=== PATIENT | female | born 1960 | race Caucasian/White ===

== ENCOUNTER 2017-01-09 20:49 | Emergency (ER) | payer OTHER ==
--- NOTE | ~2017-01-09 | CT71 ---
[facility] A Service [facility] RADIOLOGY TEXT RESULTS PATIENT: WILFREDO GOMEZ LOCATION: [facility] : 62 UNIT #: [id number] AGE: [address]: Vanessa Toro SEX: F ORDER DR: [id number] [facility]. [place], [place] [address] [id number] MR#: [id number] Acc #: [id number] NAME: WILFREDO GOMEZ : 1960 SEX: F STUDY DATE/TIME: 01/09/2017 23:36 UNIT: [facility] ROOM: STUDY DESCRIPTION: CT Head Wo Contrast Attending Physician: Vanessa Toro Pa-C Ordering Physician: Vanessa Toro Pa-C Primary Care Physician: Xena HuertaPDavidRClarisse MEDICAL IMAGING REPORT This report is preliminary unless electronic signature is present EXAM CT head without contrast. INDICATION Weakness and nausea with dizziness for the past [address] head. This CT exam was performed with one or more of the following radiation dose reduction techniques: automatic exposure control, adjustment of mA and/or kV according to patient size, and iterative reconstruction. COMPARISON None. FINDINGS No acute hemorrhage. No abnormal mass effect, extraaxial fluid collection or hydrocephalus. No depressed calvarial fracture. The paranasal sinuses and mastoid air cells are clear. IMPRESSION No acute intracranial findings. Dictated by... Deejay Smith M.D. THIS IS AN ELECTRONICALLY VERIFIED REPORT Deejay Smith M.D. at 01/14/2017 7:30 AM EED/elfego [facility] A Service [facility] RADIOLOGY TEXT RESULTS PATIENT: WILFREDO GOMEZ LOCATION: [facility] : 62 UNIT #: [id number] AGE: [address]: Vanessa Toro SEX: F ORDER DR: TD: 01/10/2017 01:59 JOB #: [id number] MEDICAL IMAGING REPORT Page 1 of 1 COPY
--- NOTE | ~2017-01-09 | EKG ---
PATIENT: WILFREDO GOMEZ UNIT #: [id number] Ventricular Rate: 66 BPM Atrial Rate: 66 BPM P-R Interval: 176 ms QRS Duration: 86 ms Q-T Interval: 406 ms QTC Calculation(Bezet): 425 ms P [place]: 44 degrees Calculated R [place]: 54 degrees Calculated T [place]: 40 degrees Diagnosis Line: Normal sinus rhythm Diagnosis Line: Normal ECG Diagnosis Line: When compared with ECG of 11-OCT-2016 18:20, Diagnosis Line: No significant change was found Diagnosis Line: Confirmed by RODO MACHADO MD ([id number]) on 01/11/2017 Diagnosis Line: 6:56:04 PM INTERPRETING MD: CARTER FRY
[~2017-01-09 20:49] MED LIST: ALPRAZOLAM1 MG PO; CITALOPRAM HBR40 MG PO; FLEXERIL PO; HYDROCHLOROTHIA25 MG PO; KEFLEX500 M1 PO; LIPITOR20 MG PO; VITAMIN D50000 UNIT PO; XANAX1 MG PO; ZYRTEC10 M2 PO
[2017-01-09 21:11] LABS: BASOPHIL# 0.1 X10e3 (0-0.3); EOSINOPHIL# 0.2 X10e3 (0-0.7); EOSINOPHIL% 2.2 % (0.0-7.0); HEMATOCRIT 44.6 % (35.0-45.0); HEMOGLOBIN 14.9 gm/dL (12.0-16.0); LYMPHOCYTE# 4.4 X10e3 (1.0-3.5); LYMPHOCYTE% 41.8 % (17.0-45.0); MEAN CELL VOLUME 87.2 FL (83-96); MEAN CORPUSCULAR HGB CONC 33.3 g/dL (30-36); MEAN PLATELET VOLUME 7.7 FL (6.5-11.5); MONOCYTE# 0.8 X10e3 (0-1.0); MONOCYTE% 7.2 % (3.0-12.0); NEUTROPHIL# 5.1 X10e3 (1.5-7.1); NEUTROPHIL% 47.8 % (40-75); PLATELET COUNT 317 X10e3 (140-420); RED BLOOD COUNT 5.12 X10e (3.90-5.30); RED CELL DISTRIBUTION WIDTH 13.1 % (11.0-15.5); WHITE BLOOD COUNT 10.6 X10e3 (4.0-10.5)
[2017-01-09 21:15] LABS: DIFF IND NO
[2017-01-09 21:35] LABS: ALBUMIN SERUM 4.4 g/dL (3.5-5.0); BILIRUBIN, DIRECT 0.1 mg/dL (0.0-0.2); BILIRUBIN,INDIRECT 1.1 mg/dL (0.0-0.9); BILIRUBIN,TOTAL 1.2 mg/dL (0.2-2.0); BUN/CREATININE RATIO 22.85; CALCIUM SERUM 9.4 mg/dL (8.4-10.2); CREATININE SERUM 0.7 mg/dL (0.6-1.4); GLOM FILT RATE Estimated 97.5 mL/min (>60); POTASSIUM 4.5 mmol/L (3.5-5.1); PROTEIN TOTAL SERUM 7.4 g/dL (6.0-8.3)
[2017-01-09 22:16] LABS: URINE SOURCE CLEAN CATCH
[2017-01-09 22:22] LABS: POC - CKMB <1.0 ng/mL (0.0-7.9); POC - TROPONIN <0.05 ng/mL (<=0.05)
[2017-01-09 22:23] LABS: URINE APPEARANCE CLEAR; URINE BILIRUBIN NEG (NEG); URINE BLOOD TRACE (NEG); URINE COLOR YELLOW; URINE GLUCOSE NEG (NEG); URINE KETONE NEG (NEG); URINE LEUKOCYTE ESTERASE NEG (NEG); URINE NITRATE NEG (NEG); URINE PH 5.5 (5-8); URINE PROTEIN NEG (NEG); URINE SPECIFIC GRAVITY 1.021 (1.003-1.035)
[2017-01-09 22:25] LABS: CULTURE INDICATED? YES; U HYALINE CASTS AUWI 0-2 /[LPF]; URBCS1 AUWI 0-2 /[HPF] (0-2); URINE BACTERIA AUWI 1+ (NEGATIVE); URINE SQUAMOUS EPITHELIAL CELL FEW /[HPF]
[2017-01-09 22:31] LABS: AMPHETAMINE NEG (NEG); BARBITURATES NEG (NEG); BENZODIAZEPINES NEG (NEG); COCAINE NEG (NEG); MARIJUANA POS (NEG); OPIATES POS (NEG); TRICYCLIC ANTIDEPRESSANTS POS (NEG); U METHADONE NEG (NEG)
== END 2017-01-10 01:01 | disposition home or self-care (01) ==
LOC: CED 20:49
PROVIDERS: Physician Assistant Medical
DX: J45.901 Unspecified asthma with (acute) exacerbation (principal); F17.210 Nicotine dependence, cigarettes, uncomplicated; Z79.899 Other long term (current) drug therapy
CPT/HCPCS: 70450; 80048; 80076; 80307; 81003; 82553; 84443; 84484; 85025; 87086; 93005; 99284

== ENCOUNTER → 2017-02-13 | Outpatient (CLI) | payer OTHER ==
--- NOTE | ~2017-02-13 | EKG ---
PATIENT: WILFREDO GOMEZ UNIT #: [id number] Ventricular Rate: 70 BPM Atrial Rate: 70 BPM P-R Interval: 170 ms QRS Duration: 86 ms Q-T Interval: 420 ms QTC Calculation(Bezet): 453 ms P [place]: 33 degrees Calculated R [place]: 54 degrees Calculated T [place]: 37 degrees Diagnosis Line: Normal sinus rhythm Diagnosis Line: Normal ECG Diagnosis Line: When compared with ECG of 09-JAN-2017 21:15, Diagnosis Line: No significant change was found Diagnosis Line: Confirmed by СВЕТЛАНА MITCHELL MD ([id number]) on 02/14/2017 Diagnosis Line: 10:01:31 AM INTERPRETING MD: STEPHEN FRY
[2017-02-13 11:32] LABS: HEMATOCRIT 41.6 % (35.0-45.0); HEMOGLOBIN 13.6 gm/dL (12.0-16.0); MEAN CELL VOLUME 88.8 FL (83-96); MEAN CORPUSCULAR HGB CONC 32.6 g/dL (30-36); MEAN PLATELET VOLUME 7.6 FL (6.5-11.5); RED BLOOD COUNT 4.68 X10e (3.90-5.30); WHITE BLOOD COUNT 8.9 X10e3 (4.0-10.5)
[2017-02-13 11:57] LABS: CREATININE SERUM 0.8 mg/dL (0.6-1.4); GLOM FILT RATE Estimated 83.1 mL/min (>60); POTASSIUM 4.3 mmol/L (3.5-5.1)
== END | disposition home or self-care (01) ==
LOC: CLAB 10:43
PROVIDERS: Specialist
DX: Z01.818 Encounter for other preprocedural examination (principal); J38.3 Other diseases of vocal cords
CPT/HCPCS: 36415; 80048; 85027; 93005